=== PATIENT | male | born 1985 | race Caucasian/White ===

== ENCOUNTER 2017-11-16 19:26 | Emergency (ER) | payer OTHER ==
[~2017-11-16] VITALS: Ht 182.9 cm; Wt 104.3 kg
--- NOTE | ~2017-11-16 | EKG ---
[address] [address] ELECTROCARDIOGRAM REPORT Name: KALIEAYDENRODOLFO CORDOVA [facility] [id number] Admission: 11/16/17 Attend Phys: Discharge: 11/16/17 Date of : 83 Report #: [id number] THIS REPORT FOR: //name// [facility] ED Test Date: 2017-11-16 Test Time: 19:43:52 Pat Name: AYDEN JADE Department: Room: Gender: M [employer] Attendant: jacqueline : 1985 Requested By: Ramesh Lin Order Number: [id number] MD: Bulmaro Robledo Measurements Intervals [place] Rate: 74 P: 44 CO: 179 QRS: 8 QRSD: 90 T: 4 QT: 373 QTc: 414 Interpretive Statements Sinus rhythm Probable left atrial enlargement No previous ECG available for comparison Electronically Signed On 11-17-2017 8:01:06 CDT by Bulmaro Robledo [email or web address] <ELECTRONICALLY SIGNED> By: Bulmaro Robledo MD 11/17/17 08 194 42 Bulmaro Robledo MD /MARIE
[2017-11-16] MEDS ORDERED: TYLENOL EXTRA500 MG PO (19:43)
[2017-11-16 19:50] LABS: URINE BILIRUBIN NEGATIVE (Negative); URINE BLOOD NEGATIVE (Negative); URINE CLARITY CLEAR; URINE COLOR YELLOW; URINE GLUCOSE-RANDOM* NEGATIVE (Negative); URINE KETONES NEGATIVE (Negative); URINE LEUKOCYTES-REFLEX NEGATIVE (Negative); URINE NITRITE-REFLEX NEGATIVE (Negative); URINE PROTEIN (DIPSTICK) NEGATIVE (Negative); URINE SPECIFIC GRAVITY >= 1.030 (1.005-1.035); URINE UROBILINOGEN 0.2 E.U./dl (0.2-1.0)
[2017-11-16 19:59] LABS: AMP/METHAMP Negative (Negative); BARBITURATES Negative (Negative); BENZODIAZEPINES Negative (Negative); COCAINE Negative (Negative); METHADONE Negative (Negative); OPIATES Negative (Negative); PCP Negative (Negative)
[2017-11-16 20:00] LABS: ABSOLUTE NEUTROPHILS 5.6 thou/uL (1.4-8.2); BASOPHILS 0.9 % (0.0-2.0); EOSINOPHILS 2.3 % (0.0-3.0); HEMATOCRIT 46.5 % (42.0-52.0); HEMOGLOBIN 16.1 gm/dL (14.0-18.0); LYMPHOCYTES 31.4 % (24.0-44.0); MCH 31.7 pg (26.0-34.0); MCHC 34.6 g/dL (28.0-37.0); MCV 91.7 fL (80.0-100.0); PLATELET COUNT 277 thou/uL (150-400); POLYS 57.4 % (36.0-66.0); RBC 5.07 mil/uL (4.50-6.00); RDW 12.7 % (10.5-14.5); WBC 9.7 thou/uL (4.0-11.0)
[2017-11-16 20:03] LABS: ANION GAP 8 mmol/L (7-16); BUN 14 mg/dL (7-18); CALCIUM 10.1 mg/dL (8.5-10.1); CHLORIDE 101 mmol/L (98-107); CO2 28 mmol/L (21-32); CREATININE 1.1 mg/dL (0.7-1.3); GLUCOSE 97 mg/dL (74-106); POTASSIUM 4.4 mmol/L (3.5-5.1); SODIUM 137 mmol/L (136-145)
[2017-11-16 20:12] LABS: SGOT 34 U/L (15-37); SGPT 63 U/L (30-65); TOTAL BILIRUBIN 0.6 mg/dL (<0.1-1.0); TOTAL PROTEIN 8.5 g/dL (6.4-8.2); TROPONIN-I < 0.04 ng/mL (<0.06)
[2017-11-16] MEDS ORDERED: BUTALB-APAP-CA1 EACH PO ×2 (21:04→21:25)
[2017-11-16 21:36] VITALS: BP 130/84
== END 2017-11-16 21:38 | disposition home or self-care (01) ==
LOC: ER 19:26
PROVIDERS: Physician Assistant
DX: G43.909 Migraine, unspecified, not intractable, without status migrainosus (principal); F17.210 Nicotine dependence, cigarettes, uncomplicated

== ENCOUNTER 2018-05-31 07:32 | Emergency (ER) | payer OTHER ==
[~2018-05-31] VITALS: Ht 182.9 cm; Wt 104.3 kg
--- NOTE | ~2018-05-31 | EKG ---
[address] [employer] [place] [address] ELECTROCARDIOGRAM REPORT Name: ADYEN JADE Room #: DEP [facility]#: [id number] Admission: 05/31/18 Attend Phys: Discharge: 05/31/18 Date of : 83 Report #: [id number] THIS REPORT FOR: //name// [facility] ED Test Date: 2018-05-31 Test Time: 07:49:38 Pat Name: AYDEN JADE Department: Room: Gender: M [employer]: [id number] : 1985 Requested By: Brianna Vinson Order Number: [id number] MD: Bulmaro Robledo Measurements Intervals [place] Rate: 81 P: 42 [place]: 184 QRS: -5 QRSD: 85 T: 1 QT: 348 QTc: 404 Interpretive Statements Sinus rhythm Minimal ST elevation, anterior leads, early repolarization Lateral leads are also involved Compared to ECG 11/16/2017 19:43:52 Electronically Signed On 06-01-2018 11:13:19 MANAGER ADOBE by Bulmaro Robledo [email or web address] <ELECTRONICALLY SIGNED> By: Bulmaro Robledo MD 06/01/18 1113 0749 Bulmaro Robledo MD /MARIE
[~2018-05-31 07:32] MED LIST: BUTALB-APAP-CA1 EACH PO; TYLENOL EXTRA500 MG PO
[2018-05-31] MEDS ORDERED: NEXIUM10 MG PO (08:04)
[2018-05-31 08:26] LABS: ANION GAP 12 mmol/L (7-16); BUN 13 mg/dL (7-18); CHLORIDE 105 mmol/L (98-107); CO2 25 mmol/L (21-32); CREATININE 0.8 mg/dL (0.7-1.3); GLUCOSE 107 mg/dL (74-106); POTASSIUM 4.5 mmol/L (3.5-5.1); SODIUM 142 mmol/L (136-145)
[2018-05-31 08:34] LABS: ALBUMIN 4.3 g/dL (3.4-5.0); DIRECT BILIRUBIN < 0.1 mg/dL (<0.1-0.3); LIPASE 280 U/L (73-393); SGOT 41 U/L (15-37); SGPT 84 U/L (30-65); TOTAL BILIRUBIN 0.4 mg/dL (<0.1-1.0); TOTAL PROTEIN 7.5 g/dL (6.4-8.2); TROPONIN-I <0.06 ng/mL (<0.06)
[2018-05-31 09:07] LABS: HEMATOCRIT 44.8 % (42.0-52.0); HEMOGLOBIN 15.4 gm/dL (14.0-18.0); MCH 31.3 pg (26.0-34.0); MCHC 34.5 g/dL (28.0-37.0); MCV 90.7 fL (80.0-100.0); RBC 4.93 mil/uL (4.50-6.00); RDW 12.7 % (10.5-14.5)
[2018-05-31] MEDS ORDERED: MOBIC15 MG PO (11:47)
[2018-05-31] MEDS ORDERED: NORCO 5-325 TA1 EACH PO (11:47)
[2018-05-31 12:18] VITALS: BP 120/86
== END 2018-05-31 18:52 | disposition home or self-care (01) ==
LOC: ER 07:32
PROVIDERS: Emergency Medicine
DX: R07.89 Other chest pain (principal); R11.2 Nausea with vomiting, unspecified; R06.02 Shortness of breath; Z87.891 Personal history of nicotine dependence

== ENCOUNTER 2019-08-20 02:20 | Emergency (ER) | payer OTHER ==
[~2019-08-20] VITALS: Ht 182.9 cm; Wt 113.4 kg
[~2019-08-20 02:20] MED LIST changes: +MOBIC15 MG PO; +NEXIUM10 MG PO; +NORCO 5-325 TA1 EACH PO
[2019-08-20 03:38] VITALS: BP 136/84
== END 2019-08-20 03:45 | disposition home or self-care (01) ==
LOC: ER 02:20
DX: J06.9 Acute upper respiratory infection, unspecified (principal); R68.89 Other general symptoms and signs; F17.210 Nicotine dependence, cigarettes, uncomplicated; Z79.899 Other long term (current) drug therapy

== ENCOUNTER → 2020-04-28 | Outpatient (CLI) | payer OTHER | LOC: ULTRA 09:23 | PROVIDERS: ATTEND Family Medicine | DX: N50.89 Other specified disorders of the male genital organs (principal) ==